=== PATIENT | male | born 1955 | race Hispanic/Latino ===

== ENCOUNTER 2022-11-01 12:17 | Emergency (ER) | payer OTHER ==
[~2022-11-01] VITALS: Ht 162.6 cm; Wt 81.6 kg
[2022-11-01] MEDS ORDERED: TETANUS/DIPHTHERIA TOX ADULT 0.5 ML SYR ONE (12:45)
[2022-11-01] MEDS ORDERED: LIDOCAINE HCL 1% LOCAL INJ 20 ML VIAL INJ ONE (12:45)
[2022-11-01] MEDS ORDERED: CEPHALEXIN500 MG PO (13:12)
[2022-11-01] MEDS ORDERED: BACITRACIN ZINC 0.9GM TP ONE (13:22)
[2022-11-01] MEDS ORDERED: TETANUS/DIPHTHERIA TOX ADULT 0.5 ML SYR IM ONE (13:30)
[2022-11-01] MEDS ORDERED: BACITRACIN/POLYMYXIN 30 GM OINT TP ONE (14:00)
== END 2022-11-01 13:24 | disposition home or self-care (01) ==
LOC: FSED 12:32
DX: S61.012A Laceration without foreign body of left thumb without damage to nail, initial encounter (principal); W45.0XXA Nail entering through skin, initial encounter; Y92.89 Other specified places as the place of occurrence of the external cause
CPT/HCPCS: 90471; 90714; 99283